=== PATIENT | male | born 1975 | race Two or more races ===

== ENCOUNTER 2024-02-20 11:07 | Emergency (ER) | payer MEDICAID, OTHER ==
[~2024-02-20] VITALS: Ht 177.8 cm; Wt 83.4 kg
[2024-02-20 11:14] VITALS: BP 151/97; PULSE 104; RESP 18; O2SAT 95
== END 2024-02-20 11:43 | disposition left against medical advice (07) ==
LOC: ER 11:07
DX: S00.12XA Contusion of left eyelid and periocular area, initial encounter (principal); S00.11XA Contusion of right eyelid and periocular area, initial encounter; Z53.21 Procedure and treatment not carried out due to patient leaving prior to being seen by health care provider; Y08.89XA Assault by other specified means, initial encounter; Y93.89 Activity, other specified; Y92.89 Other specified places as the place of occurrence of the external cause; Y99.8 Other external cause status